=== PATIENT | male | born 1940 | race Caucasian/White ===

== ENCOUNTER → 2021-02-22 13:49 | Outpatient (CLI) | payer MEDICARE, SELFPAY ==
--- NOTE | ~2021-02-22 | CT_ITS ---
EXAMINATION:CT diagnostic chest wo con DATE: 02/22/2021 14:04 INDICATION: Thoracic aortic aneurysm without rupture. TECHNIQUE: Computed tomography (CT) of the chest was performed without intravenous contrast. Automate d exposure control and iterative reconstruction technique were employed. The dose-length product (DLP ) was 566.45 mGy-cm. COMPARISON: Chest CT 09/23/2019 FINDINGS: There are areas of chronic peripheral septal thickening in the lungs with a lower lung pred ominance. There is bronchiectasis and volume loss involving left lower lobe. No honeycombing. Calcifi ed bilateral pulmonary nodules are consistent with old granulomatous disease. No pleural effusion. Th e heart size is normal. There are coronary artery calcifications. No pericardial effusion. There is a small sliding hiatal hernia. The aorta measures 3.9 cm at the sinuses of Valsalva, 3.7 cm at the sin otubular junction, 4.5 cm in the mid ascending aorta, 2.7 cm at the aortic isthmus, and 2.7 cm in the mid descending aorta. There is mild thoracic spondylosis. IMPRESSION: 1. 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 2. Stable mild chronic interstitial lung disease. Reviewed, dictated and finalized at location A.
== END ==
PROVIDERS: PCP Family Medicine; Visit Provider Family Medicine
DX: I71.2 Thoracic aortic aneurysm, without rupture (principal); J84.9 Interstitial pulmonary disease, unspecified
CPT/HCPCS: 71250

== ENCOUNTER 2021-06-14 00:49 | Day surgery (SDC) | payer MEDICARE, SELFPAY ==
[2021-05-31 14:16] VITALS: BMI 27.3
[2021-06-14 08:18] VITALS: BP 125/72; PULSE 89; RESP 18; TEMP 36.7; O2SAT 97; BMI 27.7
[2021-06-14] MEDS: LACTATED RINGERS 1,000 ML 150 ML IV CONT (08:40)
--- NOTE | 2021-06-14 08:59 | P.PNAN_ITS ---
Anes - Initial Pre Proc Eval Procedure: Operation Date: 06/14/21 09:00 Proposed Procedures p Screening Colonoscopy - Brendon Sheppard MD Date/Time: 06/14/21 08:59 Surgeon: Brendon Sheppard MD Pre Op Diagnosis: hx of colon polyps Patient Data Age: 81 Gender: M Height: 1.83 m Weight: 92.7 kg Last Vital Signs Temp 98.1 F 06/14/21 08:18 Pulse 89 06/14/21 08:18 Resp 18 06/14/21 08:18 BP 125/72 06/14/21 08:18 Pulse Ox 97 06/14/21 08:18 Allergies Allergy/AdvReac Type Severity Reaction Status Date / Time doxycycline Allergy Unknown Unknown Verified 06/14/21 08:17 Home Medications Medication Instructions Recorded Confirmed Type aspirin 81 mg tablet,delayed 81 mg PO DAILY 09/14/19 05/31/21 History release Bacillus coagulans 800 million 1 cell PO DAILY 09/05/20 05/31/21 History cell tablet lutein 20 mg capsule 20 mg PO DAILY 09/05/20 05/31/21 History enrakpcg-mgx-jyjpx acid 0.4 1 tablet PO DAILY 09/05/20 05/31/21 History mg-lycopene 300 mcg-lutein 250 mcg tablet vitamin B complex 1 tablet PO DAILY 09/05/20 05/31/21 History atorvastatin 20 mg tablet See Rx Instructions .ROUTE 10/31/20 05/31/21 Rx .COMPLEX #90 tablet omeprazole 20 mg capsule,delayed 20 mg PO DAILY #90 cap 02/20/21 05/31/21 Rx release tamsulosin 0.4 mg capsule 0.4 mg PO DAILY #90 cap 02/20/21 05/31/21 Rx calcium carbonate-vitamin D3 1 tablet PO DAILY 05/31/21 05/31/21 History [Calcium + D] Patient hx anesthesia problems: none Family hx anesthesia problems: none Results Review: All pre-operative results and documents have been reviewed as part of the pre-operative evaluation. [facility], [facility] Past Medical History Medical History (Updated 06/14/21 @ 08:59 by Ramón Torres MD) Dyslipidemia Essential (primary) hypertension Gastro-esophageal reflux disease without esophagitis Mixed hyperlipidemia due to type 2 diabetes mellitus Thoracic aortic aneurysm, without rupture Family History Family History Father Carcinoma of colon Family history of lung cancer Mother Family history of congestive heart failure Social History Social History Alcohol intake: current Drinks per week: 7 Substance use: never Living arrangements: with family Maximilian - Chyna Final PreProcedure Day of Procedure 06/14/21 08:59 Patient weight: overweight Heart: regular rate and rhythm Lungs: clear to auscultation Airway: Mallampati scale class II Neurological: alert and oriented Last oral intake: >/= 8 hours Emergent: no Anesthetic plan: proceed Anesthesia type and monitoring: general GIVS and standard monitoring Results Review: All pre-operative results and documents have been reviewed as part of the pre-operative evaluation. Informed Consent: The patient's anesthetic plan and its attendant risks and benefits were discussed with the patient/family/POA. Questions were solicited and answers provided to the satisfaction of the patient/family/POA.
--- NOTE | 2021-06-14 09:01 | WPDGICN ---
Assessment and Plan Assessment and plan (1) Family history of colon cancer in father: Code(s): Z80.0 - Family history of malignant neoplasm of digestive organs Status: Acute Assessment and Plan: Patient's father had colon cancer for this reason surveillance colonoscopy has been recommended every 5 years. Patient presents today for screening exam. (2) History of colon polyps: Code(s): Z86.010 - Personal history of colonic polyps Status: Acute Assessment and Plan: Patient found to have adenomatous colon polyp [place] [address] Yanez. (3) Esophageal dysphagia: Code(s): R13.10 - Dysphagia, unspecified Status: Acute Assessment and Plan: Patient has a history of GE reflux esophageal narrowing dilated in the past. Currently felt to be stable. GI Consult Note Consult date/time: 06/14/21 09:01 HPI: Dereck Rodriguez is a 81 year old male Presents for surveillance colonoscopy. Patient reports that his father had colon cancer. He has had several previous colonoscopies. Most recent colonoscopy 2014 revealed colon polyps. Patient presents today for follow-up examination. His current weight appetite bowel movements normal. He denies abdominal pain. He has had no bleeding. Review of Systems Review of Systems: All systems reviewed & are unremarkable except as noted in HPI and below PMFSH Past Medical History Medical History (Updated 06/14/21 @ 09:02 by Brendon Sheppard MD) Dyslipidemia Essential (primary) hypertension Gastro-esophageal reflux disease without esophagitis Mixed hyperlipidemia due to type 2 diabetes mellitus Thoracic aortic aneurysm, without rupture Family History Family History Father Carcinoma of colon Family history of lung cancer Mother Family history of congestive heart failure Social History Social History Alcohol intake: current Drinks per week: 7 Substance use: never Living arrangements: with family Meds Home Medications and Allergies Home Medications Medication Instructions Recorded Confirmed Type aspirin 81 mg tablet,delayed 81 mg PO DAILY 09/14/19 05/31/21 History release Bacillus coagulans 800 million 1 cell PO DAILY 09/05/20 05/31/21 History cell tablet lutein 20 mg capsule 20 mg PO DAILY 09/05/20 05/31/21 History kmjkmkqo-vfw-spfgv acid 0.4 1 tablet PO DAILY 09/05/20 05/31/21 History mg-lycopene 300 mcg-lutein 250 mcg tablet vitamin B complex 1 tablet PO DAILY 09/05/20 05/31/21 History atorvastatin 20 mg tablet See Rx Instructions .ROUTE 10/31/20 05/31/21 Rx .COMPLEX #90 tablet omeprazole 20 mg capsule,delayed 20 mg PO DAILY #90 cap 02/20/21 05/31/21 Rx release tamsulosin 0.4 mg capsule 0.4 mg PO DAILY #90 cap 02/20/21 05/31/21 Rx calcium carbonate-vitamin D3 1 tablet PO DAILY 05/31/21 05/31/21 History [Calcium + D] Allergies Allergy/AdvReac Type Severity Reaction Status Date / Time doxycycline Allergy Unknown Unknown Verified 06/14/21 08:17 Vital Signs Vital Signs - 24 hr 06/14/21 08:18 Temperature 98.1 F Pulse Rate 89 Respiratory Rate 18 Blood Pressure 125/72 Pulse Oximetry 97 Exam Narrative: Physical exam reveals patient to be alert. Vital signs stable. HEENT exam is unremarkable. Patient is anicteric. Lungs are clear to auscultation and percussion. Heart is without murmur or extra sounds. Abdominal exam bowel sounds are present soft nontender with no hepatosplenomegaly. Digital external rectal exam is normal.
[2021-06-14 09:25] VITALS: BP 92/57; PULSE 66; RESP 18; O2SAT 98
[2021-06-14 09:35] VITALS: BP 95/55; PULSE 69; RESP 16; O2SAT 99
[2021-06-14 09:45] VITALS: BP 106/60; PULSE 66; RESP 17; O2SAT 98
== END 2021-06-14 10:03 | disposition home or self-care (01) ==
PROVIDERS: PCP Family Medicine; Visit Provider Internal Medicine Gastroenterology
PROC: 0DJD8ZZ Inspection of Lower Intestinal Tract, Via Natural or Artificial Opening Endoscopic (ICD-10-PCS; CPT 45378; principal; 2021-06-14 09:00)
DX: Z12.11 Encounter for screening for malignant neoplasm of colon (principal); R13.10 Dysphagia, unspecified; K21.9 Gastro-esophageal reflux disease without esophagitis; K57.30 Diverticulosis of large intestine without perforation or abscess without bleeding; I10 Essential (primary) hypertension; I71.2 Thoracic aortic aneurysm, without rupture; E78.5 Hyperlipidemia, unspecified; E11.9 Type 2 diabetes mellitus without complications; K64.8 Other hemorrhoids; Z80.0 Family history of malignant neoplasm of digestive organs; Z86.010 Personal history of colon polyps
CPT/HCPCS: G0105; J2704; J7120

== ENCOUNTER → 2022-07-11 10:18 | Outpatient (CLI) | payer MEDICARE, SELFPAY ==
--- NOTE | ~2022-07-11 | CT_ITS ---
EXAMINATION: CT chest high resolution wo in DATE: 07/11/2022 10:33 INDICATION: Aortic ectasia TECHNIQUE: Computed tomography (CT) of the chest was performed without intravenous contrast. The dose -length product (DLP) was 461.63 mGy-cm. Automated exposure control and iterative reconstruction tech [email or web address] were employed. COMPARISON: 02/22/2021 FINDINGS: There is an unchanged groundglass opacity of the left upper lobe. No pleural effusion or pn eumothorax. The lungs are free of acute airspace opacities. Again noted is mild chronic peripheral se ptal thickening with a lower lung zone predominance. Calcified pulmonary nodules and calcified left h ilar lymph nodes are consistent with old granulomatous disease. The aorta measures 3.9 cm at the sinu ses of Valsalva. The aorta measures up to 4.3 cm in the mid ascending aorta. The descending aorta is normal in caliber. No dissection is identified within the limitations of noncontrast examination. The re is mild thoracic spondylosis. IMPRESSION: 1. Stable ectasia of the ascending aorta, not significantly changed. 2. Stable mild chronic interstitial lung disease. Reviewed, dictated and finalized at location B.
== END ==
PROVIDERS: PCP Family Medicine; Visit Provider Family Medicine
DX: I77.819 Aortic ectasia, unspecified site (principal)
CPT/HCPCS: 71250

== ENCOUNTER → 2023-01-15 16:14 | Outpatient (CLI) | payer MEDICARE, SELFPAY ==
--- NOTE | ~2023-01-15 | XR_ITS ---
AP view of the pelvis and AP and lateral views of the left hip Clinical history: Pain Findings: No acute fracture or dislocation is seen. Osseous alignment is anatomic. Bilateral hip and SI joint spaces are preserved. Soft tissues are unremarkable. Impression: No significant abnormality is seen. Reviewed, dictated and finalized at [facility]. Impression: No significant abnormality is seen.
== END ==
PROVIDERS: PCP Family Medicine; Visit Provider Family Medicine
DX: M25.552 Pain in left hip (principal)
CPT/HCPCS: 73502

== ENCOUNTER 2023-02-19 08:56 | Observation (INO) | payer MEDICARE, SELFPAY ==
[2023-02-19] VITALS (28 sets, daily range): BP systolic 102–129; BP diastolic 53–75; PULSE 70–111; RESP 10–21; TEMP 36.2–36.7; O2SAT 97–100; BMI 25.7
--- NOTE | ~2023-02-19 | CT_ITS ---
CT of the Abdomen and Pelvis: Indication: Abdominal pain Technique: 2.5 mm axial scans were obtained through the abdomen and pelvis following intravenous adm inistration of 100 cc of Omnipaque 350. Dose reduction technique was used on this scan by utilizing a utomated exposure control and iterative reconstruction technique. The dose-length product (DLP) was 6 72.94 mGy-cm. Findings: Scans through the lung bases are unremarkable. The liver, spleen, pancreas, gallbladder, adrenals and left kidney are within normal limits. There is a 3.8 cm probable solid right renal mass anteriorly (axial image 86). There is a second adjacent 2.5 cm probable solid mass at the medial aspect of the right kidney (axial image 93). There is a probabl e third solid lesion at the posterolateral margin of the right kidney measuring 1.8 cm in diameter (a xial image 98). No evidence of aortic aneurysm. No lymphadenopathy. No bowel obstruction or bowel wall thickening. There is no evidence to suggest acute appendicitis. Images through the pelvis were performed. Urinary bladder unremarkable. Prostate gland and seminal ve sicles are unremarkable. No ascites. Impression: Multiple probable solid right renal masses, as detailed above. Ultrasound or pre and postcontrast MR could be considered to further confirm solid lesions (and exclude complex cysts). Renal cell carcinom a is suspected for solid renal mass until proven otherwise. Reviewed, dictated and finalized at [facility]. Impression: Multiple probable solid right renal masses, as detailed above. Ultrasound or pr e and postcontrast MR could be considered to further confirm solid lesions (and exclude complex cysts). Renal cell carcinoma is suspected for solid renal mass until proven otherwise.
--- NOTE | ~2023-02-19 | MR_ITS ---
EXAMINATION: MR abdomen wo/w con INDICATION: Multiple renal masses TECHNIQUE: Coronal SSFSE ARC, WATER:coronal LAVA-FLEX, Coronal 2D FIESTA FatSat, Axial SSFSE BH ARC, Axial 3D DualEcho BH, Axial SSFSE-IR, Axial DWI b=500, Axial 2D FIESTA FatSat, pre and dynamic postco ntrast Axial LAVA ARC, postcontrast Coronal In and Opposed phase LAVA FLEX COMPARISON: CT, 02/19/2023 CONTRAST: Multihance, 17 cc FINDINGS: Cysts of the liver measure up to 6 mm in the left hepatic lobe. The spleen, pancreas, gallb ladder, and adrenal glands are normal. There is a diverticulum of the second/third portion of the duo denum. There are multiple cysts of the kidneys. At least for hemorrhagic cysts are noted on the right . There are at least three hemorrhagic cysts of the left kidney. There is a 3.8 cm proteinaceous cyst of the right kidney. Multiple simple cysts of the right kidney measure up to 8 mm. There are no path ologically enlarged abdominal lymph nodes. There are no dilated loops of bowel. IMPRESSION: 1. Multiple bilateral kidney masses, consistent with simple, proteinaceous, and hemorrhagic cyst. No suspicious renal mass identified. Reviewed, dictated and finalized at location L.
[2023-02-19 09:31] LABS: Basophils Percent Auto 0.3 % (0.2-1.2); Eosinophils Absolute Auto 0.1 K/mm3 (0-0.3); Hematocrit 32.1 % (42.0-52.0); Hemoglobin 10.5 g/dL (14.0-18.0); Immature Granulocyte Absolute 0.03 K/mm3 (0.00-0.031); Immature Granulocyte Percent A 0.4 % (0-0.5); Lymphocytes Absolute Auto 1.03 K/mm3 (0.9-3.2); Mean Corpuscular HGB Conc 32.7 g/dl (32-36); Mean Corpuscular Hemoglobin 30.8 pg (26-34); Mean Corpuscular Volume 94.1 fl (80-100); Mean Platelet Volume 9.8 fl (7.4-10.4); Monocytes Absolute Auto 0.5 K/mm3 (0.1-0.6); Monocytes Percent Auto 6.5 % (2.6-8.5); Neutrophils Absolute Auto 5.7 K/mm3 (1.3-6.7); Neutrophils Percent Auto 77.8 % (45.5-73.1); Platelet Count Result 175 k/mm3 (150-375); Red Blood Count 3.41 M/mm3 (4.6-6.20); Red Cell Distribution Width 13.1 % (11.5-14.5); White Blood Count 7.3 K/mm3 (4.5-10.0)
--- NOTE | 2023-02-19 09:36 | ECG_ITS ---
Measurements Intervals [place] Rate: 95 P: 51 TX: 143 QRS: 42 QRSD: 82 T: 11 QT: 315 QTc: 397 Interpretive Statements SINUS RHYTHM WITH SINUS ARRHYTHMIA RSR' IN V1 OR V2, PROBABLY NORMAL VARIANT BORDERLINE T WAVE ABNORMALITY- INFERIOR LEADS BASELINE ARTIFACT- III, V3 BORDERLINE ECG NO PREVIOUS ECG AVAILABLE FOR COMPARISON Electronically Signed On 02-19-2023 9:43:33 CDT by Hugo Peguero D.O.
[2023-02-19 09:48] LABS: Partial Thromboplastin Time 24.4 SECONDS (22.3-36.8); Prothrombin Time 13.4 Seconds (11.1-14.7)
[2023-02-19 09:51] LABS: Alanine Aminotransferase 26 U/L (6-50); Albumin Level 3.8 g/dL (3.5-5.1); Alkaline Phosphatase 58 U/L (38-126); Anion Gap 3 mmol/L (8-16); Aspartate Amino Transferase 25 U/L (17-59); Bilirubin,Total 0.6 mg/dL (0.2-1.3); Blood Urea Nitrogen 30 mg/dL (9-20); Calcium 8.6 mg/dL (8.4-10.2); Carbon Dioxide 29 mmol/L (22-30); Chloride 107 mmol/L (98-107); Estimated CRCL calculation 44 ml/min; Estimated Glomerular Filt Rate 53; Glucose 122 mg/dL (65-110); Potassium 4.6 mmol/L (3.4-5.0); Sodium 139 mmol/L (137-145)
--- NOTE | 2023-02-19 13:31 | ED.GENADULT ---
HPI - General Adult General Chief complaint: GI Bleed Stated complaint: GI bleeding with dizziness Time Seen by Provider: 02/19/23 09:40 History of Present Illness HPI narrative: 82-year-old male with history gastroesophageal reflux, esophageal dysphagia and previous colon polyps presenting to the ED for evaluation of bleeding per rectum. Patient states yesterday he was playing golf and did have some worsening fatigue. Patient states he did have a low blood pressure at home last night. Patient reports this morning at approximately 4 AM he had onset of blood mixed with stool and subsequently had 2 additional bloody movements that contained very little stool. Patient did have some lower abdominal pain last night. Patient has had prior follow-up with GI, Dr. Sheppard Related Data Home Medications Medication Instructions Recorded Confirmed aspirin 81 mg tablet,delayed 81 mg PO DAILY 07/09/22 02/19/23 release calcium carbonate 600 mg-vitamin 1 cap PO DAILY 07/09/22 02/19/23 D3 5 mcg (200 unit) capsule (Calcium 600 + D(3)) diclofenac sodium 1 % topical gel 2 g topical QID 07/09/22 02/19/23 lutein 20 mg tablet 20 mg PO DAILY 07/09/22 02/19/23 multivitamin 1 tablet PO DAILY 07/09/22 02/19/23 atorvastatin 20 mg tablet 20 mg PO DAILY 02/19/23 02/19/23 omeprazole 20 mg capsule,delayed 20 mg PO DAILY 02/19/23 02/19/23 release tamsulosin 0.4 mg capsule 0.4 mg PO DAILY 02/19/23 02/19/23 Allergies Allergy/AdvReac Type Severity Reaction Status Date / Time No Known Allergies Allergy Verified 02/19/23 15:52 Review of Systems Review of Systems: All systems reviewed & are unremarkable except as noted in HPI and below PMFSH Past Medical History Medical History Aortic ectasia, thoracic Dyslipidemia Essential (primary) hypertension Gastro-esophageal reflux disease without esophagitis IFG (impaired fasting glucose) Mixed hyperlipidemia due to type 2 diabetes mellitus Thoracic aortic aneurysm, without rupture Surgical History Surgical History History of carpal tunnel release History of rhinoplasty Family History Family History Father Carcinoma of colon Family history of lung cancer Mother Family history of congestive heart failure Social History Social History Smoking status: Never smoker Second hand tobacco smoke exposure: No Alcohol intake: current Drinks per week: 4 Substance use: never Substance use type: does not use Lack of Transportation: No Lack of Food: Never True Current Housing: I Have Housing Concerned About Future Housing: No Difficulty Paying Gas/Electric Bills: No Difficulty Paying for Meds: No Currently Unemployed: No Education: Trade/Vocational Certificate Difficulty w/ Childcare or Family Care: No Living arrangements: with family Occupation/Education: retired Gender identity (if verbalized by the patient): Male Sexual Orientation (if Verbalized by the Patient): Straight or Heterosexual Spiritual care concerns: No Exam Narrative: APPEARANCE: Well appearing, no pain, no distress, well-nourished. HEAD: normocephalic, atraumatic. EYES: PERRLA/EOMI, conjunctivae clear. NOSE: Normal no drainage NECK: Supple. No adenopathy, no masses. RESPIRATORY: Airway patent, respirations nonlabored. Clear to auscultation bilaterally, no rales, rhonchi, wheezing. CARDIOVASCULAR: Regular rate and rhythm without murmurs rubs or gallops. ABDOMINAL: Soft, nontender, nondistended, normal bowel sounds Rectal exam: Hemoccult positive digital rectal exam with dark red blood MUSCULOSKELETAL: Moves all extremities. Strength/ROM intact, No edema, No calf tenderness. NEURO: Alert. Cranial nerves II through XII intact. Good gait. Good coordination SKIN: Warm, dry. Normal
[2023-02-19] MEDS: PANTOPRAZOLE SODIUM IV 40 MG VIAL IV PUSH (13:44)
[2023-02-19 14:34] LABS: Hematocrit 29.1 % (42.0-52.0); Hemoglobin 9.7 g/dL (14.0-18.0)
--- NOTE | 2023-02-19 15:20 | ADMGEN ---
This patient, Dereck Rodriguez, was admitted to Medical Room 260-01. Patient/family oriented to hospital policies and general routines including ID bracelet, bed and alarms, visiting hours, pain management, procedures, bathroom and other care routines, personal items, smoking policy, room service/diet, and visiting hours. Information on how to activate the Rapid Response Team has been discussed. Patient/Family are encouraged to report perceived risks to care and to ask questions if they do not understand what they are told or what they should do.
--- NOTE | 2023-02-19 16:05 | WPDGICN ---
Assessment and Plan Assessment and plan (1) LGI bleed: Code(s): K92.2 - Gastrointestinal hemorrhage, unspecified Status: Acute Assessment and Plan: Patient with abrupt lower GI bleeding most consistent with diverticular bleeding. Patient had recent colonoscopy confirming diverticular disease. Patient's symptom complex most consistent with this. Patient has begun to have less frequent stools. Most often this will stop on its own. Plan to allow liquid diet tonight. Continue to monitor hemoglobin every 6 hours. Further workup and evaluation in the morning depending events overnight. Transfuse as necessary to maintain hemoglobin greater than 8. (2) Diverticulosis: Code(s): K57.90 - Diverticulosis of intestine, part unspecified, without perforation or abscess without bleeding Status: Acute (3) Right renal mass: Code(s): N28.89 - Other specified disorders of kidney and ureter Status: Acute Assessment and Plan: CT scan imaging in the emergency room revealed a right renal mass. We will obtain urology consultation for further evaluation and therapy. Patient's has seen Dr. Villafuerte previously. GI Consult Note Consult date/time: 02/19/23 16:05 Reason for consult: Blood in stool HPI: Dereck Rodriguez is a 82 year old male is consulted at the request of the emergency room. Patient known to my service because of a colonoscopy 1-1/2 years ago that revealed diverticulosis and hemorrhoids. Patient was in his usual state of health until yesterday when he went golfing. During his golfing out it he felt somewhat weak and not quite as usual self. Early in the morning at 4:00 a.m. this morning he began to pass a large amount of blood in stool. He passed at least 3 large bloody stools early in the morning. He went to the emergency room about main a.m.. He has only had 1 bowel movement subsequently. Patient denies any abdominal pain. He has had no fever. He has never had bleeding like this before. Family history is significant is father had colon cancer. Patient has had colon polyps in the past. Recent colonoscopy revealed however revealed only diverticulosis and hemorrhoids. 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 Patient has had no dysuria nor blood in his urine. FORMERLY [facility] Past Medical History Medical History Aortic ectasia, thoracic Dyslipidemia Essential (primary) hypertension Gastro-esophageal reflux disease without esophagitis IFG (impaired fasting glucose) Mixed hyperlipidemia due to type 2 diabetes mellitus Thoracic aortic aneurysm, without rupture Surgical History Surgical History History of carpal tunnel release History of rhinoplasty Family History Family History Father Carcinoma of colon Family history of lung cancer Mother Family history of congestive heart failure Social History Social History Smoking status: Never smoker Second hand tobacco smoke exposure: No Alcohol intake: current Drinks per week: 7 Substance use: never Substance use type: does not use Living arrangements: with family Occupation/Education: retired Gender identity (if verbalized by the patient): Male Sexual Orientation (if Verbalized by the Patient): Straight or Heterosexual Meds Home Medications and Allergies Home Medications Medication Instructions Recorded Confirmed Type ascorbic acid (vitamin C) 500 mg mg PO 07/09/22 01/14/23 History capsule aspirin 81 mg tablet,delayed 81 mg PO DAILY 07/09/22 01/14/23 History release calcium carbonate 600 mg-vitamin cap PO 07/09/22 01/14/23 History D3 5 mcg (200 unit) capsule (Calcium 600 + D(3)) chol
[2023-02-19 20:14] LABS: Hematocrit 28.2 % (42.0-52.0); Hemoglobin 9.5 g/dL (14.0-18.0)
[2023-02-20] VITALS (10 sets, daily range): BP systolic 97–120; BP diastolic 51–65; PULSE 68–92; RESP 17–24; TEMP 36.5–36.6; O2SAT 96–100
--- NOTE | 2023-02-20 01:01 | PM.IMHP ---
H&P: HPI History of Present Illness Date/Time: 02/19/2023 23:00 Chief Complaint: Low blood pressure and rectal bleeding. Narrative: This is a very pleasant 82-year-old male with history of GERD, hypertension, dyslipidemia, and colon polyps who presented to the emergency department via private vehicle for evaluation of low blood pressure and rectal bleeding. He got up at about 05:30 as he had an early domenica time to play golf with his friends. Upon waking he was not feeling great and he thought he was just tired from getting up so early. After playing the 3rd hole he started to feel weak, fatigued, dizzy, and he was also experiencing some mild blurry vision. He rode in the cart the next 9 holes and went home early because he was still not feeling well. He thought perhaps he was a bit dehydrated and drank some water and Gatorade without much improvement. His checked his blood pressure when he got home and it was reportedly 62/40. He did not do much the rest of the night and went to bed. At about 04:00 he awoke to use the bathroom at which time he had a bowel movement admixed with bright red blood. He denies straining with the bowel movement and there was no rectal pain or abdominal discomfort with that. He had 2 additional bloody stools thereafter and he came in for evaluation. His blood pressures have been stable since arrival to the emergency department. Initial hemoglobin was 10.5 which is down from 14.5 in June 2022. Rectal exam in the ED showed dark red blood which was Hemoccult positive. CT of the abdomen and pelvis showed no etiology for the bleeding but renal masses were noted concerning for renal cell carcinoma. He has been admitted to the floor in this setting for close monitoring given rectal bleeding and GI consultation. He has had no further episodes of rectal bleeding since this morning at the time my evaluation he does not have any complaints. Review of Systems Review of Systems: Twelve systems were reviewed. No syncope. No recent cold or flu symptoms. No fever, chills, or sweats. No chest pain shortness a breath. He denies abdominal pain. No nausea or vomiting. He really has constipation and has not been straining to have bowel movements. He has been having issues with left hip pain recently, sometimes it is even bothering him at nighttime. He has not had any recent falls. Except as documented, all other systems were reviewed and are negative. [facility] Past Medical History Medical History Aortic ectasia, thoracic Dyslipidemia Essential (primary) hypertension Gastro-esophageal reflux disease without esophagitis Thoracic aortic aneurysm, without rupture Surgical History Surgical History (Updated 02/20/23 @ 01:04 by Verna Argueta PA-C) History of carpal tunnel release History of rhinoplasty Status post LASIK surgery Family History Family History Father Carcinoma of colon Family history of lung cancer Mother Family history of congestive heart failure Social History Social History (Updated 02/20/23 @ 01:07 by Verna Argueta PA-C) Social History: Surrogate medical decision maker: Giselle Rodriguez, spouse. Code status: Full code. Smoking status: Never smoker Second hand tobacco smoke exposure: No Alcohol intake: current Drinks per week: 4 Substance use: never Substance use type: does not use Lack of Transportation: No Lack of Food: Never True Current Housing: I Have Housing Concerned About Future Housing: No Difficulty Paying Gas/Electric Bills: No Difficulty Paying for Meds: No Currently Unemployed: No Education: Trade/Vocational Certificate Difficulty w/ Childcare or Family Care: No Living arrangements: with family Occupation/Education: retired Spiritual care concerns: No Meds Home Medications and Allergies Home Medications Medication In
[2023-02-20 01:39] LABS: Hematocrit 30.5 % (42.0-52.0); Hemoglobin 10.1 g/dL (14.0-18.0)
--- NOTE | 2023-02-20 07:13 | WPDGIPROGNO ---
Progress Note: A&P Assessment and Plan (1) LGI bleed: Code(s): K92.2 - Gastrointestinal hemorrhage, unspecified Status: Acute Assessment and Plan: Lower GI bleeding has stopped. May still have old blood. Plan to increase activity. Hemoglobin 10.1 remains stable since admission. Lower GI bleeding secondary to known diverticular disease. No need for follow-up colonoscopy at this time. (2) Diverticulosis: Code(s): K57.90 - Diverticulosis of intestine, part unspecified, without perforation or abscess without bleeding Status: Acute Assessment and Plan: Patient known to have diverticulosis. This was source of recent blood loss. Plan to increase activity. Hemoglobin stable. Increase diet. Discharge later today after seen by Urology. Patient can ambulate as tolerated. Follow-up CBC advised in 1 week. (3) Right renal mass: Code(s): N28.89 - Other specified disorders of kidney and ureter Status: Acute Assessment and Plan: Urology to see patient for right renal mass suspicious for renal cell carcinoma. Hopefully consult can be obtained and plan outlined prior to discharge today. Subjective Date/time seen: 02/20/23 07:13 Interval history: Patient alert comfortable this morning. No additional bleeding noted. Patient denies abdominal pain. No since of light headedness. No bowel movements overnight. Patient feels comfortable. No abdominal pain. Patient did not require IV fluids nor transfusion. Review of Systems Review of Systems: Review of systems noncontributory. Exam Narrative: Physical exam reveals patient be alert. Vital signs stable. HEENT exam reveals no icterus. Lungs are clear. Heart without murmur. Abdomen bowel sounds present soft nontender with no organomegaly. Objective Data Vital Signs Vital Signs: Vital Signs - 24 hr 02/19/23 09:04 02/19/23 09:12 02/19/23 09:19 Temperature 97.2 F L Pulse Rate 104 H 104 H 88 Respiratory Rate 18 16 Blood Pressure 128/75 120/66 124/67 Pulse Oximetry 99 97 Oxygen Delivery Room Air 02/19/23 09:20 02/19/23 09:21 02/19/23 09:16 Temperature Pulse Rate 99 111 H 97 Respiratory Rate 14 Blood Pressure 125/61 126/66 118/69 Pulse Oximetry Oxygen Delivery 02/19/23 09:20 02/19/23 09:21 02/19/23 09:23 Temperature Pulse Rate 94 102 H 105 H Respiratory Rate 16 17 19 Blood Pressure 124/67 125/61 126/66 Pulse Oximetry 99 100 100 Oxygen Delivery 02/19/23 09:31 02/19/23 09:46 02/19/23 10:01 Temperature Pulse Rate 97 80 80 Respiratory Rate 15 18 Blood Pressure 126/73 117/70 118/68 Pulse Oximetry 98 99 99 Oxygen Delivery 02/19/23 10:16 02/19/23 10:31 02/19/23 10:46 Temperature Pulse Rate 85 79 75 Respiratory Rate 16 15 Blood Pressure 122/67 121/67 114/66 Pulse Oximetry 99 97 100 Oxygen Delivery 02/19/23 11:01 02/19/23 11:31 02/19/23 12:01 Temperature Pulse Rate 77 73 78 Respiratory Rate 21 H 18 19 Blood Pressure 111/69 116/69 113/68 Pulse Oximetry 100 99 98 Oxygen Delivery 02/19/23 12:16 02/19/23 13:00 02/19/23 13:09 Temperature Pulse Rate 76 81 83 Respiratory Rate 19 10 L 16 Blood Pressure 117/67 117/74 117/74 Pulse Oximetry 99 100 100 Oxygen Delivery 02/19/23 13:16 02/19/23 13:31 02/19/23 13:46 Temperature Pulse Rate 78 76 82 Respiratory Rate 17 19 18 Blood Pressure 124/73 123/59 L 104/60 Pulse Oximetry 99 99 100 Oxygen Delivery 02/19/23 14:01 02/19/23 14:16 02/19/23 15:05 Temperature Pulse Rate 74 70 79 Respiratory Rate 12 16 16 Blood Pressure 113/71 109/62 129/69 Pulse Oximetry 100 98 100 Oxygen Delivery 02/19/23 16:05 02/19/23 20:14 02/19/23 20:00 Temperature 98.1 F 98 F Pulse Rate 75 76 76 Respiratory Rate 18 17 17 Blood Pressure 114/53 L 102/58 L Pulse Oximetry 100 100 100 Oxygen Delivery Room Air 02/20/23 05:51 Temperature 98 F Pulse Rate 83 Respirator
[2023-02-20 08:21] LABS: Hematocrit 29.9 % (42.0-52.0); Hemoglobin 9.9 g/dL (14.0-18.0); Mean Corpuscular HGB Conc 33.1 g/dl (32-36); Mean Corpuscular Hemoglobin 31.3 pg (26-34); Mean Corpuscular Volume 94.6 fl (80-100); Mean Platelet Volume 9.4 fl (7.4-10.4); Platelet Count Result 162 k/mm3 (150-375); Red Blood Count 3.16 M/mm3 (4.6-6.20); Red Cell Distribution Width 13.2 % (11.5-14.5); White Blood Count 5.2 K/mm3 (4.5-10.0)
[2023-02-20 08:22] LABS: Hematocrit 29.3 % (42.0-52.0); Hemoglobin 9.8 g/dL (14.0-18.0)
[2023-02-20 08:43] LABS: Anion Gap 0 mmol/L (8-16); Blood Urea Nitrogen 18 mg/dL (9-20); Calcium 8.3 mg/dL (8.4-10.2); Carbon Dioxide 32 mmol/L (22-30); Chloride 106 mmol/L (98-107); Estimated CRCL calculation 56 ml/min; Estimated Glomerular Filt Rate > 60; Glucose 111 mg/dL (65-110); Potassium 4.4 mmol/L (3.4-5.0); Sodium 138 mmol/L (137-145)
[2023-02-20] MEDS: TAMSULOSIN HCL 0.4 MG CAPSULE PO (08:54)
[2023-02-20] MEDS: PANTOPRAZOLE 40 MG TABLET PO (08:54)
[2023-02-20] MEDS: ATORVASTATIN 20 MG TABLET PO (08:55)
--- NOTE | 2023-02-20 16:44 | PM.IMPN ---
Progress Note: A&P Assessment and Plan (1) GI bleed: Qualifiers: GI bleed type/associated pathology: diverticulosis Qualified Code(s): K57.91 - Diverticulosis of intestine, part unspecified, without perforation or abscess with bleeding Code(s): K92.2 - Gastrointestinal hemorrhage, unspecified Status: Acute Assessment and Plan: Patient presented with c/o LLQ pain and dark red stool. H/O diverticulosis from prior colonoscopy. GI consulted and appreciate recommendations. H/H monitored and stable Tolerating diet. Improved. (2) Acute blood loss anemia: Code(s): D62 - Acute posthemorrhagic anemia Status: Acute Assessment and Plan: As above. (3) Right renal mass: Code(s): N28.89 - Other specified disorders of kidney and ureter Status: Acute Assessment and Plan: Noted on CT scan- multiple right renal masses, which is a new finding. No hematuria. Urology consulted and appreciate recommendations. Abd MRI suggests multiple bilateral kidney masses, consistent with simple, proteinaceous, and hemorrhagic cyst. No suspicious renal mass identified, but awaiting patient evaluation by Urology. Plan CODE STATUS: FULL CODE Discharge disposition: discharge home when cleared by Urology. Time Spent With Patient Time with patient: 25 - 35 minutes Subjective Date/time seen: 02/20/23 16:44 Interval history: He reports mild LLQ abd pain. He had one stool today that had some dark blood, but it was less than that noted prior to admission. He is tolerating regular food. He had an MRI abdomen today and is awaiting evaluation by Urology. Review of Systems Review of Systems: All systems reviewed & are unremarkable except as noted in HPI and below Exam Narrative: General: No acute distress.?Sitting up in bed. Mental Status/Psych: Awake, alert and oriented x4 with clear speech. Pleasant and cooperative. Skin: Skin fair, warm, dry and intact without rashes or lesions. No open wounds. Good turgor. HEENT: Normocephalic. Sclera is non-icteric. Pupils equal and round. Oral mucosa pink and moist. Neck: No JVD. Heart: S1 and S2 regular rate and rhythm. No murmurs, gallops, or rubs auscultated. Chest: Respirations even and unlabored. Lung sounds are clear to auscultation without wheezes, rhonchi, or rales. Abdomen: Soft, round, mildly tender to palpation LLQ.? Bowel sounds present in all 4 quadrants. No guarding. Extremities:? Grossly normal ROM all extremities. No edema, erythema or calf tenderness. Neurological: No focal deficits. Sensation intact all extremities. Cranial nerves 2-12 grossly intact. Objective Data Vital Signs Vital Signs: Vital Signs - 24 hr 02/19/23 20:14 02/19/23 20:00 02/20/23 05:51 Temperature 98 F 98 F Pulse Rate 76 76 83 Respiratory Rate 17 17 17 Blood Pressure 102/58 L 120/65 Pulse Oximetry 100 100 97 Oxygen Delivery Room Air 02/20/23 08:31 02/20/23 14:00 02/20/23 13:12 Temperature 97.7 F Pulse Rate 84 78 Respiratory Rate 18 20 Blood Pressure 117/61 111/58 L Pulse Oximetry 97 100 100 Oxygen Delivery Room Air 02/20/23 13:14 02/20/23 13:16 Temperature Pulse Rate 82 89 Respiratory Rate 22 H 24 H Blood Pressure 120/59 L 111/58 L Pulse Oximetry 100 100 Oxygen Delivery Intake/Output Intake/Output: Intake & Output 02/17/23 02/18/23 02/19/23 02/20/23 23:59 23:59 23:59 23:59 Intake Total 700 620 Balance 700 620 Meds/Results Medications: Active Medications Generic Name Dose Route Start Last Admin Trade Name Freq PRN Reason Stop Dose Admin Atorvastatin Calcium 20 mg 02/20/23 09:00 02/20/23 08:55 Atorvastatin 20 Mg Tablet PO 20 mg DAILY [facility] Administration Diclofenac Sodium 1 applic 02/20/23 09:00 02/20/23 16:40 Diclofenac Sodium 1% 100 Gm Gel (*Bkc) TOPICAL Not Given QID [facility] Pantoprazole Sodium 40 mg 02/20/23 09:00 02/20/23 08:54 Pa
--- NOTE | 2023-02-20 17:01 | WPDURCON ---
Assessment and Plan Assessment and plan (1) Right renal mass: Code(s): N28.89 - Other specified disorders of kidney and ureter Status: Acute Assessment and Plan: MRI shows Multiple bilateral kidney masses, consistent with simple, proteinaceous, and hemorrhagic cyst. No suspicious renal mass identified. There is no concern for renal cell carcinoma as perviously mentioned in his CT report. No further evaluation of the renal masses needed at this time. Urology Consult Note HPI Date Seen: 02/20/23 Time Seen: 09:00 Requesting Physician: Ellyn Grimes DO Primary Care Provider: Kelby Armstrong MD Consult Narrative Reason for consult: Right Renal Masses Narrative: Dereck Rodriguez is a 82 year old male who presented to the Er on 02/19/23 for rectal bleeding. Upon scanning the patient with a CT scan, he was found to have Right Renal Masses that were solid. We were asked to further evaluate these masses. He states he has no blood in his urine, no difficulty with urination, but has a history of kidney stones that he spontaneously passes on his own. He has no urologist that he see's regularly. WBC is 7.3, Creatinine is 1.30. MRI of the abdomen and pelvis was done this afternoon noting multiple bilateral kidney masses, consistent with simple, proteinaceous, and hemorrhagic cyst. No suspicious renal mass identified. Review of Systems Cardiovascular: Cardiovascular: Denies chest pain Respiratory: Respiratory: Reports no additional respiratory complaints Gastrointestinal: Gastrointestinal: Denies abdominal pain, Denies nausea and Denies vomiting Genitourinary: Genitourinary: Denies hematuria, Denies dysuria, Denies flank pain, Denies nocturia, Denies urinary frequency, Denies urinary hesitancy and Denies urinary urgency [facility] Past Medical History Medical History Aortic ectasia, thoracic Dyslipidemia Essential (primary) hypertension Gastro-esophageal reflux disease without esophagitis Thoracic aortic aneurysm, without rupture Surgical History Surgical History History of carpal tunnel release History of rhinoplasty Status post LASIK surgery Family History Family History Father Carcinoma of colon Family history of lung cancer Mother Family history of congestive heart failure Social History Social History Social History: Surrogate medical decision maker: Giselle Rodriguez, spouse. Code status: Full code. Smoking status: Never smoker Second hand tobacco smoke exposure: No Alcohol intake: current Drinks per week: 4 Substance use: never Substance use type: does not use Lack of Transportation: No Lack of Food: Never True Current Housing: I Have Housing Concerned About Future Housing: No Difficulty Paying Gas/Electric Bills: No Difficulty Paying for Meds: No Currently Unemployed: No Education: Trade/Vocational Certificate Difficulty w/ Childcare or Family Care: No Living arrangements: with family Occupation/Education: retired Spiritual care concerns: No Meds Home Medications and Allergies Home Medications Medication Instructions Recorded Confirmed Type aspirin 81 mg tablet,delayed 81 mg PO DAILY 07/09/22 02/19/23 History release calcium carbonate 600 mg-vitamin 1 cap PO DAILY 07/09/22 02/19/23 History D3 5 mcg (200 unit) capsule (Calcium 600 + D(3)) diclofenac sodium 1 % topical gel 2 g topical QID 07/09/22 02/19/23 History lutein 20 mg tablet 20 mg PO DAILY 07/09/22 02/19/23 History multivitamin 1 tablet PO DAILY 07/09/22 02/19/23 History atorvastatin 20 mg tablet 20 mg PO DAILY 02/19/23 02/19/23 History omeprazole 20 mg capsule,delayed 20 mg PO DAILY 02/19/23 02/19/23 History release tamsulosin 0.4 mg capsule 0.4
[2023-02-20] MEDS: DICLOFENAC SODIUM 1% 100 GM GEL (*BKC) 1 APPLIC TOPICAL (20:01)
[2023-02-21 05:14] LABS: Hematocrit 27.6 % (42.0-52.0); Hemoglobin 9.2 g/dL (14.0-18.0)
[2023-02-21 05:43] VITALS: BP 111/54; PULSE 69; RESP 19; TEMP 36.6; O2SAT 94
[2023-02-21] MEDS: TAMSULOSIN HCL 0.4 MG CAPSULE PO (08:24)
[2023-02-21] MEDS: ATORVASTATIN 20 MG TABLET PO (08:24)
[2023-02-21] MEDS: PANTOPRAZOLE 40 MG TABLET PO (08:24)
[2023-02-21] MEDS: DICLOFENAC SODIUM 1% 100 GM GEL (*BKC) 1 APPLIC TOPICAL (08:25)
--- NOTE | 2023-02-21 08:31 | WPDGIPROGNO ---
Progress Note: A&P Assessment and Plan (1) Acute blood loss anemia: Code(s): D62 - Acute posthemorrhagic anemia Status: Acute Assessment and Plan: Patient with mild normochromic anemia after bleeding from diverticular disease. Recommend follow-up CBC 1 week after discharge. High-fiber diet suggested. (2) Diverticulosis: Code(s): K57.90 - Diverticulosis of intestine, part unspecified, without perforation or abscess without bleeding Status: Acute Assessment and Plan: Patient has had bleeding from diverticulosis. Plan for high-fiber diet. Follow-up CBC in 1 week. (3) Right renal mass: Code(s): N28.89 - Other specified disorders of kidney and ureter Status: Acute Assessment and Plan: Appreciate Urology opinion. Right renal mass of no consequence. Described as a proteinaceous cyst by their review. Subjective Date/time seen: 02/21/23 08:31 Interval history: Patient alert comfortable today. Denies abdominal pain. Tolerated regular diet without difficulty. Passed a small amount of old blood today. Review of Systems Review of Systems: Review of systems noncontributory. Exam Narrative: Physical exam reveals patient be alert. Vital signs stable. HEENT exam is unremarkable. Patient anicteric. Lungs are clear. Heart without murmur. Abdomen bowel sounds present soft nontender with no organomegaly. Objective Data Vital Signs Vital Signs: Vital Signs - 24 hr 02/20/23 14:00 02/20/23 13:12 02/20/23 13:14 Temperature 97.7 F Pulse Rate 84 78 82 Respiratory Rate 18 20 22 H Blood Pressure 117/61 111/58 L 120/59 L Pulse Oximetry 100 100 100 Oxygen Delivery 02/20/23 13:16 02/20/23 19:46 02/20/23 19:51 Temperature 97.8 F 97.8 F Pulse Rate 89 68 92 Respiratory Rate 24 H 17 18 Blood Pressure 111/58 L 104/59 L 107/51 L Pulse Oximetry 100 99 96 Oxygen Delivery 02/20/23 19:52 02/20/23 20:02 02/20/23 20:00 Temperature 97.8 F 97.8 F Pulse Rate 92 68 Respiratory Rate 18 17 Blood Pressure 97/53 L 104/57 L Pulse Oximetry 100 99 Oxygen Delivery Room Air 02/21/23 05:43 Temperature 97.8 F Pulse Rate 69 Respiratory Rate 19 Blood Pressure 111/54 L Pulse Oximetry 94 Oxygen Delivery Intake/Output Intake/Output: Intake & Output 02/18/23 02/19/23 02/20/23 02/21/23 23:59 23:59 23:59 23:59 Intake Total 700 910 100 Balance 700 910 100 Meds/Results Medications: Active Medications Generic Name Dose Route Start Last Admin Trade Name You PRN Reason Stop Dose Admin Atorvastatin Calcium 20 mg 02/20/23 09:00 02/21/23 08:24 Atorvastatin 20 Mg Tablet PO 20 mg DAILY [facility] Administration Diclofenac Sodium 1 applic 02/20/23 09:00 02/21/23 08:25 Diclofenac Sodium 1% 100 Gm Gel (*Bkc) TOPICAL 1 applic QID [facility] Administration Pantoprazole Sodium 40 mg 02/20/23 09:00 02/21/23 08:24 Pantoprazole 40 Mg Tablet PO 40 mg QAM [facility] Administration Tamsulosin HCl 0.4 mg 02/20/23 09:00 02/21/23 08:24 Tamsulosin Hcl 0.4 Mg Capsule PO 0.4 mg DAILY [facility] Administration Radiology Results: ITS Impressions Abdomen/Pelvis CT 02/19/23 12:52 Impression: Multiple probable solid right renal masses, as detailed above. Ultrasound or pre and postcontrast MR could be considered to further confirm solid lesions (and exclude complex cysts). Renal cell carcinoma is suspected for solid renal mass until proven otherwise. Abdomen MRI 02/20/23 10:09 IMPRESSION: 1. Multiple bilateral kidney masses, consistent with simple, proteinaceous, and hemorrhagic cyst. No suspicious renal mass identified. Labs Labs: Laboratory Results - last 24 hr 02/20/23 02/21/23 08:10 04:50 Hgb 9.2 L Hct 27.6 L Sodium 138 Potassium 4.4 Chloride 106 Carbon Dioxide 32 H Anion Gap 0 L BUN 18 D Creatinine 1.00 Estim Creat Clear Calc 56 Estimated GFR > 60 Glucose
--- NOTE | 2023-02-21 09:20 | PM.DS ---
DS: Admitting Diagnosis Discharge Date 02/21/2023 Admitting Diagnosis GI bleed Acute blood loss anemia Right renal mass DS: Discharge Diagnosis Discharge Diagnosis (1) GI bleed: Qualifiers: GI bleed type/associated pathology: diverticulosis Qualified Code(s): K57.91 - Diverticulosis of intestine, part unspecified, without perforation or abscess with bleeding Code(s): K92.2 - Gastrointestinal hemorrhage, unspecified Status: Resolved Assessment and Plan: Patient presented with c/o LLQ pain and dark red stool. H/O diverticulosis from prior colonoscopy. GI consulted and recommended monitoring. H/H monitored and stable Tolerating diet. Resolved. (2) Acute blood loss anemia: Code(s): D62 - Acute posthemorrhagic anemia Status: Acute Assessment and Plan: As above. H/H 9.2. Repeat CBC w/o diff in 1 week outpatient. (3) Right renal mass: Code(s): N28.89 - Other specified disorders of kidney and ureter Status: Acute Assessment and Plan: Noted on CT scan- multiple right renal masses, which is a new finding. No hematuria. Urology consulted and appreciate recommendations. Abd MRI suggests multiple bilateral kidney masses, consistent with simple, proteinaceous, and hemorrhagic cyst. No suspicious renal mass identified. No further evaluation needed, per Urology. DS: Summary Hospital Course Reason for hospitalization: Low blood pressure and rectal bleeding Hospital Course: Patient is an 82-year-old male with GERD, hypertension, dyslipidemia, and colon polyps who presented to the emergency department via private vehicle for evaluation of low blood pressure and rectal bleeding. He got up at about 05:30 to play golf with his friends. Upon waking he was not feeling great and he thought he was just tired from getting up so early. After playing the 3rd hole he started to feel weak, fatigued, dizzy, and he was also experiencing some mild blurry vision. He rode in the cart the next 9 holes and went home early because he was still not feeling well. He thought perhaps he was a bit dehydrated and drank some water and Gatorade without much improvement. His checked his blood pressure when he got home and it was reportedly 62/40. He did not do much the rest of the night and went to bed. At about 04:00 he awoke to use the bathroom at which time he had a bowel movement admixed with bright red blood. He denied straining with the bowel movement and there was no rectal pain or abdominal discomfort with that. He had 2 additional bloody stools thereafter and he came in for evaluation. His blood pressures were stable since arrival to the emergency department. Initial hemoglobin was 10.5 which is down from 14.5 in June 2022. Rectal exam in the ED showed dark red blood which was Hemoccult positive. CT of the abdomen and pelvis showed no etiology for the bleeding but renal masses were noted concerning for renal cell carcinoma. He has been admitted to the floor in this setting for close monitoring given rectal bleeding. GI was consulted and recommended trending H/H. Patient had a history of diverticulosis and reported lower abdominal pain for several weeks prior to these symptoms. Hemoglobin remained 10.1 to 9.2. He had small dark blood noted to stool, however, abd pain, dizziness, blurred vision and lightheadedness resolved. His diet was advanced with good tolerance. He will have repeat CBC in 1 week and instructed to follow up with Dr. Sheppard if new or worsening symptoms develop. Urology was consulted for right renal masses. Abd MRI suggests multiple bilateral kidney masses, consistent with simple, proteinaceous, and hemorrhagic cyst; no suspicious renal mass identified. No further intervention or evaluation was recommended by Urology. He was discharged home with his in stable condition. Status at Discharge Cognitive/behavioral status at discharge: Aox4 Functi
== END 2023-02-21 10:26 | disposition home or self-care (01) ==
LOC: ANHED 11:57 → ANH2MED 14:54
PROVIDERS: Emergency Medicine; Nurse Practitioner Family; Physician Assistant; Admitting Provider Student in an Organized Health Care Education/Training Program; Emergency Provider Emergency Medicine; PCP Family Medicine; Visit Provider Student in an Organized Health Care Education/Training Program
DX: K57.91 Diverticulosis of intestine, part unspecified, without perforation or abscess with bleeding (principal); D62 Acute posthemorrhagic anemia; N28.89 Other specified disorders of kidney and ureter; K21.9 Gastro-esophageal reflux disease without esophagitis; R13.14 Dysphagia, pharyngoesophageal phase; Z86.010 Personal history of colon polyps; I95.9 Hypotension, unspecified; I71.20 Thoracic aortic aneurysm, without rupture, unspecified; E78.5 Hyperlipidemia, unspecified; I10 Essential (primary) hypertension; E11.9 Type 2 diabetes mellitus without complications; E78.2 Mixed hyperlipidemia; F10.90 Alcohol use, unspecified, uncomplicated; Z79.82 Long term (current) use of aspirin; Z79.899 Other long term (current) drug therapy
CPT/HCPCS: 36415; 74177; 74183; 80048; 80053; 85014; 85018; 85025; 85027; 85610; 85730; 86850; 86900; 86901; 93005; 96374; 99285; A9270; A9577; C9113; G0378; Q9967

== ENCOUNTER 2023-07-21 08:21 | Outpatient (CLI) | payer MEDICARE, SELFPAY ==
--- NOTE | ~2023-07-21 | CT_ITS ---
EXAMINATION: CT brain wo con DATE: 07/21/2023 09:23 INDICATION: Transient ischemic attack. Loss of balance 2 weeks ago, leaning to the right. TECHNIQUE: Computed tomography (CT) of the head was performed without intravenous contrast. The mA wa s adjusted according to patient size. Iterative reconstruction technique was employed. Exam dose: 60 5.33 mGy-cm total exam DLP. COMPARISON: None FINDINGS: No intracranial mass lesion or hemorrhage or cerebrovascular accident, midline shift or mas s effect is detected. There is moderate cerebral and mild to moderate cerebellar volume loss, not inconsistent with patient age. Bilateral carotid siphon internal carotid artery and vertebral basilar artery calcifications Noted. There is nonspecific diminished attenuation of the cerebral white matter, likely due to chroni c small vessel ischemic changes. No subdural or epidural hematoma is detected. Approximately 1.6 cm mucous retention cyst or polyp along the posterior aspect of the left maxillary antrum. The included paranasal sinuses and mastoid air cells are otherwise normally developed and aer ated. No fracture or bone destruction of the cranial vault. IMPRESSION: Cerebral atherosclerosis and chronic small vessel ischemic changes of the cerebral white matter No acute intracranial finding Reviewed, dictated and finalized at [facility]. Reviewed, dictated and finalized at [facility].
--- NOTE | ~2023-07-21 | US_ITS ---
EXAMINATION: US carotid duplex BI DATE: 07/21/2023 09:22 INDICATION: Transient cerebral ischemic attack. Cerebral atherosclerosis. TECHNIQUE: Grayscale, color Doppler, and pulsed Doppler images of the cervical carotid arteries were obtained. The degree of vessel stenosis is placed in one of the following categories: normal, <50%, 5 0-69%, >=70% but less than near-occlusion, near-occlusion, or total occlusion. Note that percent sten osis relative to normal distal artery lumen diameter is indirectly measured from velocity measurement s as described by Kai, et al. Radiology 2003; 229:340-346. COMPARISON: None. FINDINGS: RIGHT: The right common carotid artery (CCA) peak systolic velocity (PSV) is 81 cm/s. The right internal car otid artery (ICA) PSV is 75 cm/s. The right ICA end-diastolic velocity (EDV) is 25 cm/s. The right IC A/CCA PSV ratio is 0.9. Grayscale and color Doppler images yield an estimate of <50% diameter reducti on from plaque in the ICA. The external carotid artery (ECA) PSV is 91 cm/s. There is antegrade flow in the right vertebral artery. LEFT: The left CCA PSV is 80 cm/s. The left ICA PSV is 76 cm/s. The left ICA EDV is 24 cm/s. The left ICA/C CA PSV ratio is 1.0. Grayscale and color Doppler images yield an estimate of <50% diameter reduction from plaque in the ICA. The ECA PSV is 63 cm/s. There is antegrade flow in the left vertebral artery. IMPRESSION: 1. <50% stenosis in the right internal carotid artery. 2. <50% stenosis in the left internal carotid artery. Reviewed, dictated and finalized at location A.
== END 2023-07-21 08:22 | disposition home or self-care (01) ==
PROVIDERS: PCP Family Medicine; Visit Provider Family Medicine
DX: I65.23 Occlusion and stenosis of bilateral carotid arteries (principal)
CPT/HCPCS: 70450; 93880

== ENCOUNTER 2025-01-26 13:51 | Outpatient (CLI) | payer MEDICARE, SELFPAY ==
--- NOTE | ~2025-01-26 | US_ITS ---
EXAMINATION: US carotid duplex BI DATE: 01/26/2025 17:10 CDT INDICATION: Central retinal vein occlusion OS TECHNIQUE: Grayscale, color Doppler, and pulsed Doppler images of the cervical carotid arteries were obtained. The degree of vessel stenosis is placed in one of the following categories: normal, <50%, 50-69%, >=7 0% but less than near-occlusion, near-occlusion, or total occlusion. Note that percent stenosis relative to normal distal artery lumen diameter is indirectly measured fro m velocity measurements as described originally by Kai, et al. Radiology 2003; 229:340-346 and upda shanique by Bryant Santiago et al STROKE 2012;43(3);915-921. COMPARISON: 07/21/2023 FINDINGS: There is mild atherosclerosis of both carotid arteries. Peak systolic velocity (in cm/s) is detailed below RIGHT: Right common carotid artery (CCA): 100 cm/s. Right internal carotid artery (ICA) PSV: 76 cm/s. Right ICA end-diastolic velocity (EDV): 23 cm/s. Right ICA/CCA PSV ratio is 0.9. Right external carotid artery (ECA): 116cm/s. There is antegrade flow in the right vertebral artery LEFT: Left common carotid artery (CCA): 77 cm/s. Left internal carotid artery (ICA) PSV: 92 cm/s. Left ICA end-diastolic velocity (EDV): 29 cm/s. Left ICA/CCA PSV ratio is 1.2. Left external carotid artery (ECA): 103cm/s. There is antegrade flow in the left vertebral artery. IMPRESSION: 1. Less than 50% stenosis in the right internal carotid artery. 2. Less than 50% stenosis in the left internal carotid artery. Reviewed, dictated and finalized at location A.
--- OUTSIDE RECORDS SUMMARY | 2025-01-26 14:05 | XMS_ITS | Clinical Summary ---
Author Organization [facility] Address [address], [address] [address] Phone Care Team Providers Care Concrete Products Dispatcher Name Role Phone Rajesh Márquez MD Primary Care Provider [phone] Social History Tobacco Use Types Packs/Day Years Used Date Smoking Tobacco: Never Assessed Sex and Gender Information Value Date Recorded Sex Assigned at Not on file Legal Sex Male 5:39 PM CDT Gender Identity Not on file Sexual Orientation Not on file Plan of Treatment Health Maintenance Due Date Last Done Comments Hepatitis C Virus (HCV) Screening 1940 TdaP Immunization 1940 Pneumococcal Immunization (5 0+ years) (1 of 1 - PCV) 1991 Zoster Immunization (1 of 2) 1991 Respiratory Syncytial Virus (RSV) Immunization (Adult) (1 - 1-dose 75+ series) 2016 Influenza Immunization (#1) 2024 SARS-COV-2 Immunization ( season) 2024 Hepatitis B Immunization Aged Out No longer eligible based on patient's age to complete this topic Meningococcal Immunization (ACWY) Aged Out No longer eligible based on patient's age to complete this topic Rotavirus Immunization Aged Out No lo nger eligible based on patient's age to complete this topic Insurance [employer] Care Teams Concrete Products Dispatcher Relationship Specialty Start Date End Date Rajesh Márquez MD [address] [place] [place] [address] PCP - General Family Medicine 08/23/15
--- OUTSIDE RECORDS SUMMARY | 2025-01-26 14:05 | XMS_ITS | Continuity of Care Document ---
Author Organization [facility] Address [address] [place] [address] Phone Care Team Providers Care Hub Inventory Specialist Name Role Phone Lakeisha Charles Unavailable Unavailable Procedures Procedure Date Office/outpatient Visit, Est Eye Exam & Treatment Refraction Eye Exam & Treatment Refraction Advance Directives Directive Yes / No Effective Date File Name No Information Encounters Encounter Description Practice Location Reason(s) For Visit Diagnoses Date Provider Providers Copied on Encounter Office/outpat ient Visit, Est [facility], [address] [place] [address] [address], [place], [place], [id number], tel:[phone] [facility] No Information 3-201 0 Araceli Young [address] , [address], [place], [place], [facility], . tel:[phone] [facility], [address] [place] [address] [address], [place], [place], [id number], [place] tel:[phone] [facility] No Information 8-200 9 Araceli Young [address] , [address], [place], [place], [facility], . tel:[phone] [facility], [address] [place] [address] [address], [place], [place], [id number], tel:[phone] [facility] No Information 8 Araceli Suazo. [address] , [address], [place], [address], [place]. tel:[phone] Family History Family Member Type Diagnosis Age At Onset No Information Payers Payer name Insurance type Covered alliance party ID Authoriza tishun(s) [employer] SO CI [id number] [place] [id number] Social History Type Description Quantity Date Captured Comments Sex Male Smoking Status No Information Chief Complaint And Reason For Visit No Information Reason For Referral Reason For Referral No Information History Of Present Illness Encounter Date Complaint History Of Prese nt Illness No Information Functional Status Date Functional Assessmen t No Information Instructions Date Instruction Additional Infor mation No Information Assessments Type Assessment Date No Information Patient Care Teams Name Effective Dates (start - stop) Status Members No Information
--- OUTSIDE RECORDS SUMMARY | 2025-01-26 14:06 | XMS_ITS | Clinical Summary ---
Author Organization [facility] Address [facility] [place] [address] Care Team Providers Care Mixologist Name Role Phone Kelby Armstrong MD Primary Care Provider [phone] Allergies No known active allergies Medications atorvastatin (LIPITOR) 20 MG tablet Take 1 tablet (20 mg total) by mouth nightly at bedtime. Active tamsulosin (FLOMAX) 0.4 MG Cap Take 1 capsule (0.4 mg total) by mouth daily. Active pantoprazole EC (PROTONIX) 40 MG tablet Take 1 tablet (40 mg total) by mouth daily. 30 tablet 03/13/2023 Active Active Problems Problem Noted Date Diagnosed Date Hematochezia 03/10/2023 Acute blood loss anemia 03/10/2023 Overview (03/10/2023): Added automatically from request for surgery [id number] Gastroesophageal reflux dise ase, unspecified whether esophagitis present 03/10/2023 Overview (03/10/2023): Added automatically from request for surgery [id number] Social History Tobacco Use Types Packs/Day Years Used Date Smoking Tobacco: Never Smokeless Tobacco: Never Tobacco Cessation:Counseling Given: Not Answered Alcohol Use Standard Drinks/Week Comments Yes 8.3 (1 standard drink = 0.6 oz p ure alcohol) Humiliation, Afraid, Rape, and Kick questionnair e Answer Date Recorded Within the last year, have y ou been afraid of your partner or ex-partner? Patient declined 03/11/2023 Within the last year, have y ou been humiliated or emotionally abused in other ways by your partner or ex-partner? Patient declined 03/11/2023 Within the last year, have y ou been kicked, hit, slapped, or otherwise physically hurt by your partner or ex-partner? Patient declined 03/11/2023 Within the last year, have y ou been raped or forced to have any kind of sexual activity by your partner or ex-partner? Patient declined 03/11/2023 Overall Financial Resource Strain (CARDIA) Answe r Date Recorded How hard is it for you to pa y for the very basics like food, housing, medical care, and heating? Patient declined 03/11/2023 Hunger Vital Sign Answer Date Recorded Within the past 12 months, y ou worried that your food would run out before you got the money to buy more. Patient declined Within the past 12 months, t he food you bought just didn't last and you didn't have money to get more. Patient declined PRAPARE - Transportation Answer Date Re corded In the past 12 months, has l ack of transportation kept you from medical appointments or from getting medications? Patient declined 03/11/2023 In the past 12 months, has l ack of transportation kept you from meetings, work, or from getting things needed for daily living? Patient declined 03/11/2023 Housing Stability Vital Sign Answer Erick e Recorded In the last 12 months, was t here a time when you were not able to pay the mortgage or rent on time? Patient refused 03/11/20 23 In the last 12 months, how many places have you lived? 1 03/11/2023 In the last 12 months, was t here a time when you did not have a steady place to sleep or slept in a long-term (including now)? Patient refused 03/11/2023 Sex and Gender Information Value Date Recorded Sex Assigned at Not on file Legal Sex Male 10:01 AM CDT Gender Identity Not on file Sexual Orientation Not on file Last Filed Vital Signs Vital Sign Reading Time Taken Comments Blood Pressure 120/63 03/12/2023 8:19 AM CDT Pulse 83 03/12/2023 8:19 AM CDT Temperature 36.2 C (97.2 F) 03/12/2023 8:19 AM CDT Respiratory Rate 18 03/12/2023 8:19 AM CDT Oxygen Saturation 98% 03/12/2023 8:19 AM CDT Inhaled Oxygen Concentration - - Weight 95.3 kg (210 lb 1.6 oz) 03/10/2023 10:07 AM CDT Height 182.9 cm (6') 03/10/2023 10:07 AM CDT Body Mass Index 28.49 03/10/2023 10:07 AM CDT Plan of Treatment Health Maintenance Due Date Last Done Comments Pneumococcal Vaccine: 50+ Years (1 of 1 - PCV) 1991 Zoster Vaccines (1 of 2) 1991 Annual Medicare Wellness Visit 2006 RSV Immunization or 60+ Years (1 - 1-dose 75+ series) 2016 DTaP, Tdap and Td Vaccines ( 1 - Tdap) 07/15/2018 07/14/2018 COVID-19 Vaccine (4 - 2023-2 5 season) 2024 08/31/2021, 11/10/2020, 10/20/2020 Meningococcal B Vaccine Aged Out No l onger eligible based on patient's age to complete this topic Meningococcal Vaccine Aged Out No luis moises eligible based on patient's age to complete this topic RSV Immunizations Under 20 Months Aged Out No longer eligible b ased on patient's age to complete this topic Goals Goal Patient Goal Type Associated Problems Recent Progress Patient-Stated? Author Health - patient able to perform ADLs independently Lifestyle No Selina Stafford, RN Insurance [facility] Advance Directives * Full Code (Latest Code Status on File) Date Activated Date Inactivated Comments 03/10/2023 5:11 PM 03/12/2023 5:50 PM Care Teams Mixologist Relationship Specialty Start Date End Date Kelby Armstrong MD [address] [facility] [address] [place] [id number] PCP - General FAMILY PRACTICE 03/10/23
== END 2025-01-26 13:52 | disposition home or self-care (01) ==
PROVIDERS: PCP Family Medicine; Visit Provider Physician Assistant Medical
DX: H34.8122 Central retinal vein occlusion, left eye, stable (principal); I65.23 Occlusion and stenosis of bilateral carotid arteries
CPT/HCPCS: 93880

== ENCOUNTER 2025-06-17 10:54 | Outpatient (CLI) | payer MEDICARE, SELFPAY ==
--- NOTE | ~2025-06-17 | CT_ITS ---
CT ABDOMEN AND PELVIS WITHOUT CONTRAST Clinical History: R10.9 - Unspecified abdominal pain, LOWER QUADRANT PAIN Comparison: CT abdomen and pelvis 02/19/2023 MR abdomen 02/20/2023 Technique: Unenhanced axial images lung bases to symphysis pubis Coronal, sagittal reformats CT images acquired with automatic exposure control for dose reduction DLP: 682 mGy-cm Findings: Without intravenous contrast, sensitivity for detecting visceral parenchymal abnormalities decreased. Lung bases: Clear. Visualized heart and pericardium: Unremarkable. Liver: Unremarkable. Gallbladder: Unremarkable. Spleen: Unremarkable. Pancreas: Unremarkable. Adrenal glands: Unremarkable. Kidneys: Right kidney- No hydronephrosis. No renal stones. Prominent cyst, and smaller hyperdense cysts. Left kidney- No hydronephrosis. 2 mm stone. Small hyperdense cysts. Distal esophagus/stomach: Unremarkable. Small bowel loops: Normal caliber and wall thickness. Colon: Diverticula Normal caliber and wall thickness. Appendix not seen when identified to contribute. Nodes: No enlarged nodes. Peritoneum: No ascites. No free intraperitoneal air. Urinary bladder: Unremarkable. Prostate: Unremarkable. Bones: No acute bony abnormality. Soft tissues: Unremarkable. Unopacified abdominal aorta: No aneurysmal dilatation. IMPRESSION: 1. No acute findings. 2. Tiny left renal stone but no hydronephrosis. 3. Diverticulosis but no evidence of diverticulitis. Reviewed, dictated and finalized at location R.
--- OUTSIDE RECORDS SUMMARY | 2025-06-17 11:01 | XMS_ITS | Clinical Summary ---
Author Organization [facility] Address [facility] [place] [address] Care Team Providers Care Carbide Tool Maker Name Role Phone Kelby Armstrong MD Primary Care Provider [phone] Allergies No known active allergies Medications atorvastatin [...] (03/10/2023): Added automatically from request for surgery [id number] Gastroesophageal reflux dise ase, unspecified whether esophagitis present 03/10/2023 Overview (03/10/2023): Added automatically from request for surgery [id number] Social History Tobacco Use Types Packs/Day Years [...] place to sleep or slept in a care home (including now)? Patient refused 03/11/2023 Sex and [...] Tdap) 07/15/2018 07/14/2018 COVID-19 Vaccine (4 - 2024-2 6 season) 2025 08/31/2021, 11/10/2020, 10/20/2020 Meningococcal B Vaccine Aged [...] independently Lifestyle No Selina Stafford, RN Insurance [facility] Advance Directives * Full Code (Latest Code Status on File) Date Activated Date Inactivated Comments 03/10/2023 5:11 PM 03/12/2023 5:50 PM Care Teams Carbide Tool Maker Relationship Specialty Start Date End Date Kelby Armstrong MD [address] [facility] [address] [place] [id number] PCP - General FAMILY PRACTICE 03/10/23
--- OUTSIDE RECORDS SUMMARY | 2025-06-17 11:01 | XMS_ITS | Clinical Summary ---
Author Organization [facility] Address [address], [address] [address] Phone Care Team Providers Care Blueprinter Name Role Phone Rajesh Márquez MD Primary Care Provider [phone] Social History Tobacco Use Types Packs/Day Years [...] (Adult) (1 - 1-dose 75+ series) 2016 SARS-COV-2 Immunization ( season) 2024 Influenza Immunization (#1) 2025 Hepatitis B Immunization Aged Out No longer eligible based on patient's age to complete this topic Human Papillomavirus (HPV) Immunization Aged Out No longer eligible b ased on patient's age to complete this topic Meningococcal Immunization (ACWY) Aged Out No longer eligible based on patient's age to complete this topic Rotavirus Immunization Aged Out No lo nger eligible based on patient's age to complete this topic Insurance [employer] [place] [id number] Care Teams Blueprinter Relationship Specialty Start Date End Date Rajesh Márquez MD [address] [place] [address] PCP - General Family Medicine 08/23/15
[2025-06-17 11:57] LABS: Hematocrit 40.3 % (42.0-52.0); Hemoglobin 13.4 g/dL (14.0-18.0); Immature Granulocyte Percent A 0.5 % (0-0.5); Lymphocytes Absolute Auto 0.91 K/mm3 (0.9-3.2); Mean Corpuscular HGB Conc 33.3 g/dl (32-36); Mean Corpuscular Hemoglobin 31.4 pg (26-34); Mean Corpuscular Volume 94.4 fl (80-100); Nucleated Red Blood Cells Absolute Auto 0.000 K/mm3 (0.0-0.012); Nucleated Red Blood Cells Perc 0.0 % (0.0-0.2); Platelet Count Result 149 k/mm3 (150-375); Red Blood Count 4.27 M/mm3 (4.6-6.20); White Blood Count 7.8 K/mm3 (4.5-10.0)
[2025-06-17 12:16] LABS: Alanine Aminotransferase 23 U/L (6-50); Albumin Level 4.0 g/dL (3.5-5.1); Alkaline Phosphatase 78 U/L (38-126); Amylase 75 U/L (30-110); Anion Gap 6 mmol/L (4-12); Aspartate Amino Transferase 27 U/L (17-59); Bilirubin,Total 1.2 mg/dL (0.2-1.3); Blood Urea Nitrogen 17 mg/dL (9-20); Calcium 8.8 mg/dL (8.4-10.2); Carbon Dioxide 28 mmol/L (22-30); Chloride 102 mmol/L (98-107); Estimated Glomerular Filt Rate 52; Glucose 101 mg/dL (65-110); Lipase 50 U/L (23-300); Potassium 4.2 mmol/L (3.4-5.0); Sodium 136 mmol/L (137-145); Total Protein 6.9 g/dL (6.3-8.2)
== END 2025-06-17 10:55 | disposition home or self-care (01) ==
PROVIDERS: PCP Family Medicine
DX: R10.9 Unspecified abdominal pain (principal); K57.30 Diverticulosis of large intestine without perforation or abscess without bleeding
CPT/HCPCS: 36415; 74176; 80053; 82150; 83690; 85025